=== PATIENT | male | born 1985 | race Caucasian/White ===

== ENCOUNTER → 2020-12-30 | Outpatient (CLI) | payer BC ==
[2020-12-30 17:32] VITALS: BP 146/93
[2020-12-30 17:56] LABS: D-DIMER 0.22 mg/L FEU (0.15-0.50)
[2020-12-30 17:58] LABS: BASO # 0.04 (0.02-0.10); EOS # 0.06 (0.04-0.40); EOS % 0.9 % (0.0-4.0); HEMATOCRIT 46.4 % (42.0-52.0); HEMOGLOBIN 15.2 g/dL (13.5-18.0); LYMPH# 1.17 (1.50-4.00); MEAN CELL VOLUME 92 fl (78-100); MEAN CORPUSCULAR HEMOGLOBIN 30 pg (27-31); MEAN CORPUSCULAR HGB CONC 33 g/dL (33-37); MEAN PLATELET VOLUME 10.2 fl (7.4-10.4); MONO # 0.38 (0.20-0.80); NEU # 5.38 (1.40-6.50); PLATELET COUNT 220 K/mm3 (130-400); RED BLOOD COUNT 5.06 M/mm3 (4.20-5.60); RED CELL DISTRIBUTION WIDTH 13.3 % (11.5-14.5)
[2020-12-30 18:05] LABS: ALBUMIN 4.3 g/dL (3.5-5.0); SODIUM 138 mmol/L (136-145)
[2020-12-30 18:06] LABS: CALCIUM 9.6 mg/dL (8.3-10.5)
[2020-12-30 18:07] LABS: GLUCOSE 145 mg/dL (75-110); TOTAL PROTEIN 7.5 g/dL (6.4-8.3)
[2020-12-30 18:08] LABS: CARBON DIOXIDE 22 mmol/L (22-29)
[2020-12-30 18:09] LABS: TOTAL BILIRUBIN 0.7 mg/dL (0.2-1.2)
[2020-12-30 18:12] LABS: AST-SGOT 23 U/L (5-34)
[2020-12-30 18:14] LABS: ALT/SGPT 25 U/L (0-55)
[2020-12-30 18:40] LABS: TROPONIN-I < 0.03 ng/mL (<0.030)
== END ==
LOC: LAB 17:01
PROVIDERS: Nurse Practitioner Primary Care
DX: R00.2 Palpitations (principal)

== ENCOUNTER → 2021-01-04 | Outpatient (CLI) | payer BC | LOC: AMSURD 16:08 | DX: R00.2 Palpitations (principal) ==